=== PATIENT | female | born 1975 | race American Indian/Alaskan Native ===

== ENCOUNTER 2021-04-20 12:26 | Emergency (ER) | payer BC, OTHER ==
[2021-04-20 14:08] VITALS: BP 137/63
[2021-04-20] MEDS ORDERED: ACETAMINOPHEN 500 MG TAB PO ONE (14:08)
[2021-04-20] MEDS ORDERED: IBUPROFEN 600 MG TAB PO ONE (14:08)
--- NOTE | 2021-04-20 17:19 | XRay Report ---
RIGHT KNEE 3 VIEW(S) INDICATION / CLINICAL INFORMATION: pain - injury COMPARISON: None available. FINDINGS: BONES / JOINT(S): No acute fracture or subluxation. No significant arthritis. SOFT TISSUES: No significant abnormality. ADDITIONAL FINDINGS: None. Signer Name: Dom Xiong MD Signed: 04/20/2021 5:14 PM Workstation Name: [id number]
--- NOTE | 2021-04-20 17:20 | XRay Report ---
LUMBAR SPINE 2 VIEWS INDICATION / CLINICAL INFORMATION: pain - injury. COMPARISON: None available. FINDINGS: VERTEBRAE: No acute fracture. No significant malalignment. DISC SPACES / FACET JOINTS:Considerable intervertebral disc space narrowing at L5-S1 with vacuum disc deformity. No significant facet degenerative arthrosis. PARASPINAL SOFT TISSUES:No significant abnormality. ADDITIONAL FINDINGS: None. Signer Name: Dom Xiong MD Signed: 04/20/2021 5:15 PM Workstation Name: [id number]
--- NOTE | 2021-04-20 17:21 | XRay Report ---
LEFT WRIST 3 VIEW(S) INDICATION / CLINICAL INFORMATION: PAIN - Injury COMPARISON: None available. FINDINGS: BONES / JOINT(S): No acute fracture or subluxation. No significant arthritis. SOFT TISSUES: No significant abnormality. ADDITIONAL FINDINGS: None. Signer Name: Dom Xiong MD Signed: 04/20/2021 5:17 PM Workstation Name: [id number]
--- NOTE | 2021-04-20 17:22 | XRay Report ---
RIGHT SHOULDER 3 VIEW(S) INDICATION / CLINICAL INFORMATION: pain - injury COMPARISON: None available. FINDINGS: BONES / JOINT(S): No acute fracture or subluxation. No significant arthritis. SOFT TISSUES: No significant abnormality. ADDITIONAL FINDINGS: None. Signer Name: Dom Xiong MD Signed: 04/20/2021 5:18 PM Workstation Name: [id number]
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
== END 2021-04-20 18:04 | disposition home or self-care (01) ==
LOC: ED 12:26
DX: S43.401A Unspecified sprain of right shoulder joint, initial encounter (principal); S63.502A Unspecified sprain of left wrist, initial encounter; M62.830 Muscle spasm of back; F17.200 Nicotine dependence, unspecified, uncomplicated; Z98.51 Tubal ligation status; Z79.899 Other long term (current) drug therapy; V49.49XA Driver injured in collision with other motor vehicles in traffic accident, initial encounter; W22.10XA Striking against or struck by unspecified automobile airbag, initial encounter; Y93.89 Activity, other specified; Y92.410 Unspecified street and highway as the place of occurrence of the external cause; Y99.8 Other external cause status
CPT/HCPCS: 36415; 72100; 72125; 84703

== ENCOUNTER 2021-09-05 02:36 | Emergency (ER) | payer OTHER ==
[2021-09-05 03:42] VITALS: BP 147/82
[2021-09-05] MEDS ORDERED: ONDANSETRON 4 MG/2 ML INJ IV ONE (04:18)
[2021-09-05] MEDS ORDERED: KETOROLAC 30 MG/1 ML INJ IV ONE (04:22)
[2021-09-05] MEDS ORDERED: SODIUM CHLORIDE 0.9% 1000 ML 1,000 ML IV ONE (04:22)
[2021-09-05 05:12] LABS: Bacteria,Urine 2+ /HPF (Negative); Bilirubin,Urine NEG (Negative); Blood,Urine NEG (Negative); Color,Urine Yellow (Yellow); Hyaline Casts,Urine 1 /LPF; Mucus,Urine 3+ /HPF
[2021-09-05 05:25] LABS: Basophils # (Auto) 0.1 K/mm3 (0.0-0.1); Basophils % (Auto) 0.7 % (0.0-1.8); Eosinophils % (Auto) 0.6 % (0.0-4.3); Hematocrit 30.5 % (30.3-42.9); Hemoglobin 9.1 gm/dl (10.1-14.3); Lymphocytes # (Auto) 1.3 K/mm3 (1.2-5.4); Lymphocytes % (Auto) 16.8 % (13.4-35.0); Mean Corpuscular HGB Conc 30 % (30-34); Mean Corpuscular Volume 65 fl (79-97); Monocytes # (Auto) 0.6 K/mm3 (0.0-0.8); Monocytes % (Auto) 7.8 % (0.0-7.3); Platelet Count 518 K/mm3 (140-440); Red Blood Count 4.74 M/mm3 (3.65-5.03); Red Cell Distribution Width 19.8 % (13.2-15.2)
[2021-09-05 05:30] LABS: Alanine Aminotransferase 8 units/L (7-56); Albumin 3.8 g/dL (3.9-5)
[2021-09-05 05:32] LABS: Alanine Aminotransferase 8 units/L (7-56); Albumin 3.7 g/dL (3.9-5); Blood Urea Nitrogen 13 mg/dL (7-17); Calcium 8.7 mg/dL (8.4-10.2); Hemolysis Index 1
[2021-09-05 05:37] LABS: BUN/Creatinine Ratio 19; Bilirubin,Direct < 0.2 mg/dL (0-0.2)
--- NOTE | 2021-09-05 06:26 | Cat Scan Report ---
CT ABDOMEN AND PELVIS WITHOUT CONTRAST HISTORY: RIGHT sided flank pain x 1 week. possible renal stone(s). COMPARISON: None. TECHNIQUE: CT images of the abdomen and pelvis were obtained without administration of intravenous co ntrast. All CT scans at this location are performed using CT dose reduction for ALARA by means of au tomated exposure control. FINDINGS: Lungs/bones: Lung bases are clear Abdomen/pelvis: Within limits of a noncontrast examination the liver, spleen, adrenal glands, pancre as, gallbladder and upper GI tract appear normal. Echogenicities within the gallbladder could represe nt gallstones. No definite renal stones. No hydronephrosis. Appendix appears normal. No bowel obstruc tion is seen. IMPRESSION: 1. No definite renal or ureteral stone. No hydronephrosis. 2. Gallstones suggested. Signer Name: José Fletcher MD Signed: 09/05/2021 6:22 AM Workstation Name: [id number]
--- NOTE | 2021-09-05 06:44 | Emergency Department Report ---
ED Abdominal Pain HPI - General Chief Complaint: Abdominal Pain Stated Complaint: RIGHTSIDE BACK PAIN Time Seen by Provider: 09/05/21 04:22 Source: patient Mode of arrival: Ambulatory Limitations: No Limitations - History of Present Illness Initial Comments: Patient 45-year-old -[place] female who presents with left flank pain radiating suprapubic x1 week. Patient denies fevers or chills there is no nausea vomiting. Is tolerating p.o. intake. Exacerbated by movement and palpation. Symptoms are relieved by nothing tried. Patient advises urinary frequency and urgency, there is no hematuria or dysuria. Pos history of renal stones. MD Complaint: flank pain Severity scale (0 -10): 9 - Related Data Previous Rx's Medication Instructions Recorded Last Taken Type Baclofen 20 mg PO Q12HR PRN #20 tablet 04/20/21 Unknown Rx Ibuprofen [Motrin] 800 mg PO Q8HR PRN #30 tablet 04/20/21 Unknown Rx traMADoL [Ultram] 50 mg PO Q6HR PRN #12 tablet 04/20/21 Unknown Rx Famotidine [Pepcid] 20 mg PO BID #60 tablet 09/05/21 Unknown Rx Naproxen 500 mg PO BID PRN #30 tablet 09/05/21 Unknown Rx cephALEXin [Keflex] 500 mg PO Q12HR 7 Days #14 cap 09/05/21 Unknown Rx Allergies Allergy/AdvReac Type Severity Reaction Status Date / Time No Known Allergies Allergy Verified 09/05/21 04:29 ED Review of Systems ROS: Stated complaint: RIGHTSIDE BACK PAIN Other details as noted in HPI Constitutional: denies: chills, fever Eyes: as per HPI ENT: denies: ear pain, throat pain Respiratory: denies: cough, shortness of breath, wheezing Cardiovascular: denies: chest pain, palpitations Endocrine: no symptoms reported Gastrointestinal: abdominal pain. denies: nausea, vomiting, diarrhea, constipation Genitourinary: urgency, dysuria, frequency. denies: hematuria Musculoskeletal: back pain (left flank ) Skin: denies: rash, lesions Neurological: denies: headache, weakness, paresthesias Psychiatric: denies: anxiety, depression Hematological/Lymphatic: denies: easy bleeding, easy bruising ED Past Medical Hx - Past Medical History Previous Medical History?: No - Surgical History Past Surgical History?: Yes Additional Surgical History: c sect, tubal ligation - Social History Smoking Status: Current Every Day Smoker Substance Use Type: None - Medications Home Medications: Home Medications Medication Instructions Recorded Confirmed Last Taken Type Baclofen 20 mg PO Q12HR PRN #20 tablet 04/20/21 Unknown Rx Ibuprofen [Motrin] 800 mg PO Q8HR PRN #30 tablet 04/20/21 Unknown Rx traMADoL [Ultram] 50 mg PO Q6HR PRN #12 tablet 04/20/21 Unknown Rx Famotidine [Pepcid] 20 mg PO BID #60 tablet 09/05/21 Unknown Rx Naproxen 500 mg PO BID PRN #30 tablet 09/05/21 Unknown Rx cephALEXin [Keflex] 500 mg PO Q12HR 7 Days #14 cap 09/05/21 Unknown Rx ED Physical Exam - General Limitations: No Limitations General appearance: alert, in no apparent distress - Head Head exam: Present: atraumatic, normocephalic - Eye Eye exam: Present: normal appearance, EOMI Pupils: Present: normal accommodation - ENT ENT exam: Present: normal exam - Neck Neck exam: Present: normal inspection, full ROM. Absent: tenderness - Respiratory Respiratory exam: Present: normal lung sounds bilaterally. Absent: respiratory distress, wheezes, stridor, chest wall tenderness - Cardiovascular Cardiovascular Exam: Present: regular rate, normal rhythm, normal heart sounds. Absent: systolic murmur, diastolic murmur, rubs, gallop - GI/Abdominal GI/Abdominal exam: Present: soft. Absent: distended, tenderness - Rectal Rectal exam: Present: deferred - Extremities Exam Extremities exam: Present: normal inspection, full ROM. Absent: tenderness - Back Exam Back exam: Present: normal inspection, full ROM, CVA tenderness (L). Absent: CVA tenderness (R) - Neurological Exam Neurological exam: Present: alert, oriented X3, CN II-XII intact, normal gait - Psychiatric Psychiatric exam: Present: normal affect - Skin Skin exam: Present: warm, dry, intact, normal color ED Course Vital Signs 09/05/21 03:39 Temperature 98.7 F Pulse Rate 71 Respiratory 20 Rate Blood Pressure 147/82 [Left] O2 Sat by Pulse 99 Oximetry ED Medical Decision Making - Lab Data Result diagrams: 09/05/21 04:50 09/05/21 04:50 Labs 09/05/21 09/05/21 09/05/21 04:31 04:50 04:50 WBC 7.8 RBC 4.74 Hgb 9.1 L Hct 30.5 MCV 65 L MCH 19 L MCHC 30 RDW 19.8 H Plt Count 518 H Lymph % (Auto) 16.8 [place] % (Auto) 7.8 H Eos % (Auto) 0.6 Baso % (Auto) 0.7 Lymph # (Auto) 1.3 [place] # (Auto) 0.6 Eos # (Auto) 0.0 Baso # (Auto) 0.1 Seg Neutrophils % 74.1 H Seg Neutrophils # 5.8 Sodium Potassium Chloride Carbon Dioxide Anion Gap BUN Creatinine Estimated GFR BUN/Creatinine Ratio Glucose Calcium Total Bilirubin Direct Bilirubin Indirect Bilirubin AST ALT Alkaline Phosphatase Total Protein Albumin Albumin/Globulin Ratio Amylase 59 Lipase HCG, Quant Urine Color Yellow Urine Turbidity Clear Urine pH 6.0 Ur Specific [place] 1.027 Urine Protein 30 mg/dl Urine Glucose (UA) Neg Urine Ketones Neg Urine Blood Neg Urine Nitrite Neg Urine Bilirubin Neg Urine Urobilinogen 4.0 Ur Leukocyte Esterase Tr Urine WBC (Auto) 14.0 H Urine RBC (Auto) 2.0 U Epithel Cells (Auto) 1.0 Urine Bacteria (Auto) 2+ Hyaline Casts 1 Urine Mucus 3+ 09/05/21 09/05/21 09/05/21 04:50 04:50 04:50 WBC RBC Hgb Hct MCV MCH MCHC RDW Plt Count Lymph % (Auto) [place] % (Auto) Eos % (Auto) Baso % (Auto) Lymph # (Auto) [place] # (Auto) Eos # (Auto) Baso # (Auto) Seg Neutrophils % Seg Neutrophils # Sodium 136 L Potassium 3.6 Chloride 102.2 Carbon Dioxide 22 Anion Gap 15 BUN 13 Creatinine 0.7 Estimated GFR > 60 BUN/Creatinine Ratio 19 Glucose 138 H Calcium 8.7 Total Bilirubin < 0.20 < 0.20 Direct Bilirubin < 0.2 Indirect Bilirubin 0.0 AST 11 10 ALT 8 8 Alkaline Phosphatase 74 74 Total Protein 7.4 7.5 Albumin 3.8 L 3.7 L Albumin/Globulin Ratio 1.1 1.0 Amylase Lipase 19 HCG, Quant < 2 Urine Color Urine Turbidity Urine pH Ur Specific [place] Urine Protein Urine Glucose (UA) Urine Ketones Urine Blood Urine Nitrite Urine Bilirubin Urine Urobilinogen Ur Leukocyte Esterase Urine WBC (Auto) Urine RBC (Auto) U Epithel Cells (Auto) Urine Bacteria (Auto) Hyaline Casts Urine Mucus - Radiology Data Radiology results: report reviewed, image reviewed CT ABDOMEN AND PELVIS WITHOUT CONTRAST HISTORY: RIGHT sided flank pain x 1 week. possible renal stone(s). COMPARISON: None. TECHNIQUE: CT images of the abdomen and pelvis were obtained without administration of intravenous contrast. All CT scans at this location are performed using CT dose reduction for ALARA by means of automated exposure control. FINDINGS: Lungs/bones: Lung bases are clear Abdomen/pelvis: Within limits of a noncontrast examination the liver, spleen, adrenal glands, pancreas, gallbladder and upper GI tract appear normal. Echogenicities within the gallbladder could represent gallstones. No definite renal stones. No hydronephrosis. Appendix appears normal. No bowel obstruction is seen. IMPRESSION: 1. No definite renal or ureteral stone. No hydronephrosis. 2. Gallstones suggested. Signer Name: José Fletcher MD Signed: 09/05/2021 6:22 AM Workstation Name: [id number] - Medical Decision Making CT Abd and Pelvis: No definite renal or ureteral stone. No hydronephrosis. 2. Gallstones suggested, ua: pos for leuk, lilibeth, plan: tx for uti, pt will dc 'd with rx, follow up with GI, follow up with pcp , pt verbalized agreement and understanding of same. Critical care attestation.: If time is entered above; I have spent that time in minutes in the direct care of this critically ill patient, excluding procedure time. ED Disposition Clinical Impression: Nonspecific abdominal pain, Concern about gallstones without diagnosis UTI (urinary tract infection) Qualifiers: Urinary tract infection type: acute cystitis Hematuria presence: without hematuria Qualified Code(s): N30.00 - Acute cystitis without hematuria Disposition: HOME / SELF CARE / HOMELESS Is pt being admited?: No Does the pt Need Aspirin: No Condition: Stable Instructions: Abdominal Pain (ED), Urinary Tract Infection, Adult, [id number], Cholelithiasis, [id number], Food Choices for Gastroesophageal Reflux Disease, Adult Additional Instructions: Take all medications as prescribed. Follow-up with your doctor in 2 to 3 days. Follow-up with GI for evaluations rule out gallstones. Prescriptions: cephALEXin [Keflex] 500 mg PO Q12HR 7 Days #14 cap Naproxen 500 mg PO BID PRN #30 tablet PRN Reason: Pain Famotidine [Pepcid] 20 mg PO BID #60 tablet Referrals: JAKE DIAZ MD [Referring] - 3-5 Days VEGA FONSECA MD [Staff Physician] - 3-5 Days Forms: Work/School Release Form(ED) Time of Disposition: 06:51
== END 2021-09-05 07:24 | disposition home or self-care (01) ==
LOC: ED 02:36
DX: N39.0 Urinary tract infection, site not specified (principal); K80.20 Calculus of gallbladder without cholecystitis without obstruction; R10.9 Unspecified abdominal pain; Z98.890 Other specified postprocedural states; F17.200 Nicotine dependence, unspecified, uncomplicated
CPT/HCPCS: 36415; 74176; 80053; 80076; 81001; 82150; 83690; 84702; 85025; 87076; 87086; 87186; 96361; 96374; 96375; 99284; J1885; J2405; J7030

== ENCOUNTER 2021-09-05 22:38 | Emergency (ER) | payer SELFPAY ==
[2021-09-05] MEDS ORDERED: KETOROLAC 30 MG/1 ML INJ IV ONE (22:58)
[2021-09-05] MEDS ORDERED: ONDANSETRON 4 MG/2 ML INJ IV ONE (22:58)
[2021-09-05] MEDS ORDERED: SODIUM CHLORIDE 0.9% 1000 ML 1,000 ML IV ONE (22:58)
--- NOTE | 2021-09-05 23:11 | Emergency Department Report ---
ED Abdominal Pain HPI - General Chief Complaint: Back Pain/Injury Stated Complaint: GALLSTONE PAIN PUI?: No Time Seen by Provider: 09/05/21 22:58 Source: patient, EMS Mode of arrival: Stretcher Limitations: No Limitations - History of Present Illness Initial Comments: Patient is a 45-year-old female who presents emergency room with complaints of right flank pain. Patient states the flank pain is radiating to her suprapubic and to her lower back. Patient states is been going on for 1 week. Patient states her symptoms worsen. Patient states she was seen at this hospital today and diagnosed with a UTI patient states she was sent home with prescriptions of antibiotics pain meds and she was not able to lease picker her prescriptions because she did not have a ride to the pharmacy. Patient denies nausea vomiting. Patient denies fever and chills. Patient complains of dysuria. Patient denies chest pain or shortness of breath. Patient denies recent travel. Patient denies recent international travel. Patient denies exposure to the novel coronavirus. Patient denies sick contacts. Patient denies fever and chills. Patient denies cough. Patient denies diarrhea. Patient denies coming in contact with anybody with symptoms of the novel coronavirus. MD Complaint: abdominal pain -: Sudden Location: R flank Radiation: suprapubic, back Migration to: no migration Severity: severe Severity scale (0 -10): 10 Quality: stabbing Consistency: constant Improves With: rest Worsens With: movement Associated Symptoms: dysuria. denies: nausea, vomiting, diarrhea, fever, chills, constipation, hematemesis, hematochezia, melena, hematuria, syncope - Related Data LMP (females 10-50): this week Previous Rx's Medication Instructions Recorded Last Taken Type Baclofen 20 mg PO Q12HR PRN #20 tablet 04/20/21 Unknown Rx Ibuprofen [Motrin] 800 mg PO Q8HR PRN #30 tablet 04/20/21 Unknown Rx traMADoL [Ultram] 50 mg PO Q6HR PRN #12 tablet 04/20/21 Unknown Rx Famotidine [Pepcid] 20 mg PO BID #60 tablet 09/05/21 Unknown Rx Naproxen 500 mg PO BID PRN #30 tablet 09/05/21 Unknown Rx cephALEXin [Keflex] 500 mg PO Q12HR 7 Days #14 cap 09/05/21 Unknown Rx Allergies Allergy/AdvReac Type Severity Reaction Status Date / Time No Known Allergies Allergy Verified 09/05/21 22:49 ED Review of Systems ROS: Stated complaint: GALLSTONE PAIN Other details as noted in HPI Constitutional: denies: chills, fever Eyes: denies: eye pain, eye discharge, vision change ENT: denies: ear pain, throat pain Respiratory: denies: cough, shortness of breath, wheezing Cardiovascular: denies: chest pain, palpitations Endocrine: no symptoms reported Gastrointestinal: as per HPI, abdominal pain. denies: nausea, diarrhea Genitourinary: urgency, dysuria. denies: discharge Musculoskeletal: denies: back pain, joint swelling, arthralgia Skin: denies: rash, lesions Neurological: denies: headache, weakness, paresthesias Psychiatric: denies: anxiety, depression Hematological/Lymphatic: denies: easy bleeding, easy bruising ED Past Medical Hx - Past Medical History Previous Medical History?: No - Surgical History Past Surgical History?: Yes Additional Surgical History: c sect, tubal ligation - Family History Family history: no significant - Social History Smoking Status: Never Smoker Substance Use Type: None - Medications Home Medications: Home Medications Medication Instructions Recorded Confirmed Last Taken Type Baclofen 20 mg PO Q12HR PRN #20 tablet 04/20/21 Unknown Rx Ibuprofen [Motrin] 800 mg PO Q8HR PRN #30 tablet 04/20/21 Unknown Rx traMADoL [Ultram] 50 mg PO Q6HR PRN #12 tablet 04/20/21 Unknown Rx Famotidine [Pepcid] 20 mg PO BID #60 tablet 09/05/21 Unknown Rx Naproxen 500 mg PO BID PRN #30 tablet 09/05/21 Unknown Rx cephALEXin [Keflex] 500 mg PO Q12HR 7 Days #14 cap 09/05/21 Unknown Rx ED Physical Exam - General Limitations: No Limitations General appearance: alert, in no apparent distress - Head Head exam: Present: atraumatic, normocephalic - Eye Eye exam: Present: normal appearance - ENT ENT exam: Present: mucous membranes moist - Neck Neck exam: Present: normal inspection - Respiratory Respiratory exam: Present: normal lung sounds bilaterally. Absent: respiratory distress - Cardiovascular Cardiovascular Exam: Present: regular rate, normal rhythm. Absent: systolic murmur, diastolic murmur, rubs, gallop - GI/Abdominal GI/Abdominal exam: Present: soft, tenderness (Right flank tenderness), normal bowel sounds - Extremities Exam Extremities exam: Present: normal inspection - Back Exam Back exam: Present: normal inspection, tenderness, CVA tenderness (R) - Neurological Exam Neurological exam: Present: alert, oriented X3 - Psychiatric Psychiatric exam: Present: normal affect, normal mood - Skin Skin exam: Present: warm, dry, intact, normal color. Absent: rash ED Course Vital Signs 09/05/21 09/06/21 22:49 00:02 Temperature 97.8 F 98.1 F Pulse Rate 56 L 54 L Respiratory 18 12 Rate Blood Pressure 184/91 153/87 [Left] O2 Sat by Pulse 100 98 Oximetry - Reevaluation(s) Reevaluation #1: Patient states her pain is better. 09/06/21 00:18 Reevaluation #2: I discussed all results and clinical findings with patient. I discussed plan of care with patient. Patient agrees with plan of care. Patient is stable for discharge. Patient will be discharged home. Patient given discharge instructions. Patient voiced understanding of discharge instructions. 09/06/21 01:19 ED Medical Decision Making - Lab Data Result diagrams: 09/05/21 23:07 09/05/21 23:07 - Radiology Data Radiology results: report reviewed CT ABDOMEN AND PELVIS WITH CONTRAST HISTORY: Abdominal Pain. COMPARISON: None. TECHNIQUE: CT images of the abdomen and pelvis were obtained following administration of intravenous contrast. All CT scans at this location are performed using CT dose reduction for ALARA by means of automated exposure control. CONTRAST: 100 ml of intravenous contrast administered. FINDINGS: Lungs/bones: Lung bases are clear Abdomen/pelvis: There is mild diffuse fatty infiltration the liver. Spleen, adrenal glands, pancreas, gallbladder and upper GI tract appear normal. Bilateral kidneys appear normal. Appendix appears normal. Fluid is seen in the endometrium. No bowel obstruction. Small periaortic nodes without dominant adenopathy. Small gallstones small gallstones in the ga llbladder. IMPRESSION: 1. Cholelithiasis. 2. Fatty infiltration of the liver. - Medical Decision Making Patient is a 45-year-old female that presents emergency room with complaints of right flank pain and right back pain. Patient was seen in this emergency the day prior. Patient was diagnosed with UTI gallstones. Patient was discharged home with naproxen, antibiotics and Pepcid. Patient did not lease picker her prescriptions and the pain worsened. Patient had repeat labs and the labs were essentially unremarkable. Patient's UA from previous visit showed a UTI. Patient had a CT scan of the abdomen to rule out pyelonephritis the CT scan was negative. Patient was given Rocephin and Zofran and Toradol. Patient is pain was relieved. Patient states she is much controlled. Patient responded well to treatment. Patient is stable for discharge. Patient not require inpatient service. Patient not require further emergency medical service. Patient stable for discharge. Patient discharged home. Patient instructed to follow her previous discharge instructions. Patient instructed to fill the medications. Patient still has the prescriptions with her. I discussed all results and clinical findings with patient. I discussed plan of care with patient. Patient agrees with plan of care. Patient is stable for discharge. Patient will be discharged home. Patient given discharge instructions. Patient voiced understanding of discharge instructions. - Differential Diagnosis UTI, biliary colic, pyelonephritis, back pain Critical care attestation.: If time is entered above; I have spent that time in minutes in the direct care of this critically ill patient, excluding procedure time. ED Disposition Clinical Impression: Right flank pain UTI (urinary tract infection) Qualifiers: Urinary tract infection type: acute cystitis Hematuria presence: with hematuria Qualified Code(s): N30.01 - Acute cystitis with hematuria Cholelithiasis Qualifiers: Cholelithiasis location: gallbladder Cholecystitis presence: without cholecystitis Biliary obstruction: without biliary obstruction Qualified Code(s): K80.20 - Calculus of gallbladder without cholecystitis without obstruction Disposition: 01 HOME / SELF CARE / HOMELESS Is pt being admited?: No Does the pt Need Aspirin: No Condition: Stable Instructions: Urinary Tract Infection, Adult, Flank Pain, Adult, [id number], Cholelithiasis Additional Instructions: Patient to follow-up with primary care in 2 to 3 days. Patient to follow-up wit h general surgery in 2 to 3 days. Patient to rest. Patient to increase water. Patient to take Tylenol or ibuprofen as needed for pain. Patient to take meds as directed. Patient to return to the ER if condition worsens, changes or new symptoms arise. Patient to lease picker her prescription from her previous ER visit. Patient to go directly to the pharmacy and start the medications. Patient to follow her previous discharge instructions. Referrals: PRIMARY CARE, [Primary Care Provider] - 2-3 Days KANCHAN MACIAS DO [Staff Physician] - 2-3 Days Time of Disposition: 01:21
[2021-09-05 23:44] LABS: Basophils # (Auto) 0.1 K/mm3 (0.0-0.1); Basophils % (Auto) 0.6 % (0.0-1.8); Eosinophils % (Auto) 0.4 % (0.0-4.3); Lymphocytes # (Auto) 1.6 K/mm3 (1.2-5.4); Lymphocytes % (Auto) 20.7 % (13.4-35.0); Mean Corpuscular HGB Conc 29 % (30-34); Monocytes # (Auto) 0.5 K/mm3 (0.0-0.8); Platelet Count 480 K/mm3 (140-440)
[2021-09-05 23:54] LABS: Hematocrit 30.9 % (30.3-42.9); Mean Corpuscular Volume 64 fl (79-97); Red Cell Distribution Width 20.4 % (13.2-15.2)
[2021-09-06 00:17] LABS: Blood Urea Nitrogen 9 mg/dL (7-17); Calcium 8.9 mg/dL (8.4-10.2); Hemolysis Index 6
[2021-09-06 00:22] LABS: Alanine Aminotransferase 8 units/L (7-56); Albumin 3.6 g/dL (3.9-5)
--- NOTE | 2021-09-06 00:40 | Cat Scan Report ---
CT ABDOMEN AND PELVIS WITH CONTRAST HISTORY: Abdominal Pain. COMPARISON: None. TECHNIQUE: CT images of the abdomen and pelvis were obtained following administration of intravenous contrast. All CT scans at this location are performed using CT dose reduction for ALARA by means of automated exposure control. CONTRAST: 100 ml of intravenous contrast administered. FINDINGS: Lungs/bones: Lung bases are clear Abdomen/pelvis: There is mild diffuse fatty infiltration the liver. Spleen, adrenal glands, pancreas , gallbladder and upper GI tract appear normal. Bilateral kidneys appear normal. Appendix appears nor mal. Fluid is seen in the endometrium. No bowel obstruction. Small periaortic nodes without dominant adenopathy. Small gallstones small gallstones in the gallbladder. IMPRESSION: 1. Cholelithiasis. 2. Fatty infiltration of the liver. Signer Name: José Fletcher MD Signed: 09/06/2021 12:35 AM Workstation Name: [id number]
[2021-09-06 00:53] LABS: BUN/Creatinine Ratio 13; Bilirubin,Direct < 0.2 mg/dL (0-0.2)
[2021-09-06] MEDS ORDERED: cefTRIAXone/NS 2 GM/100 ML 2 GM/100 ML BAG IV ONE (01:18)
[2021-09-06 02:09] VITALS: BP 154/92
== END 2021-09-06 02:20 | disposition home or self-care (01) ==
LOC: ED 22:38
DX: K80.20 Calculus of gallbladder without cholecystitis without obstruction (principal); N39.0 Urinary tract infection, site not specified; R10.31 Right lower quadrant pain
CPT/HCPCS: 36415; 74177; 80048; 80076; 84703; 85025; 96361; 96365; 96375; 99284; J0696; J1885; J2405; J7030; Q9967